=== PATIENT | female | born 1950 | race Two or more races ===

== ENCOUNTER 2021-12-10 20:41 | Inpatient (IN) | payer SELFPAY ==
[~2021-12-10] VITALS: Ht 160 cm; Wt 70.7 kg
[2021-12-10 22:39] LABS: Basophils # (auto) 0 10 ^3/uL (0-0.2); Basophils % (auto) 0.2 % (0.0-2.0); Eosinophils # (auto) 0 10 ^3/uL (0-0.8); Eosinophils % (auto) 0.4 % (0.0-7.0); Hematocrit 34.8 % (36.0-46.0); Hemoglobin 11.4 g/dL (12.2-16.2); Lymphocytes # (auto) 2.2 10 ^3/uL (0.4-5.4); Lymphocytes % (auto) 19.7 % (10.0-50.0); Mean Corpuscular Hemoglobin 29.8 pg (28.0-32.0); Mean Corpuscular Hgb Conc. 32.9 g/dL (32.0-36.0); Mean Corpuscular Volume 90.5 fL (80.0-100.0); Monocytes # (auto) 0.5 10 ^3/uL (0-1.3); Monocytes % (auto) 4.8 % (0.0-12.0); Neutrophils # (auto) 8.4 10 ^3/uL (1.6-8.6); Neutrophils % (auto) 74.9 % (37.0-80.0); Red Blood Cells 3.84 10^6/uL (4.0-5.20); Red Cell Distribution Width 12.9 % (11.8-14.3); White Blood Cell 11.2 10^3/uL (4.4-10.8)
[2021-12-10 23:03] LABS: Albumin 3.6 g/dL (3.4-5.0); Calcium 8.6 mg/dL (8.5-10.1); Potassium 4.1 mmol/L (3.5-5.1)
[2021-12-10 23:09] LABS: BUN/Creatinine Ratio 28.1; Bilirubin, Total 0.3 mg/dL (0.2-1.0); Magnesium 2.2 mg/dL (1.6-2.6); Total Protein 7.4 g/dL (6.4-8.2)
[2021-12-11] MEDS ORDERED: SODIUM CHLORIDE 0.9% 1,000 ML IV ONE
[2021-12-11 01:49] LABS: Urine Bacteria FEW /hpf (None Seen); Urine Blood Negative /uL (Negative); Urine Hyaline Cast MANY /lpf (0 - 2); Urine Mucus FEW (None Seen); Urine Specific Gravity 1.024 (1.001-1.035); Urine WBC 12 /hpf (0 - 5)
[2021-12-11 01:58] LABS: Alcohol, Urine < 3.0 mg/dL (0-10); Amphetamine Screen, Urine NEGATIVE (NEGATIVE); Barbiturate Scree,Urine NEGATIVE (NEGATIVE); Benzodiazephine Screen, Urine NEGATIVE (NEGATIVE); Cannabinoid Screen, Urine NEGATIVE (NEGATIVE); Cocaine Screen, Urine NEGATIVE (NEGATIVE); Opiate Scree,Urine NEGATIVE (NEGATIVE); Phencyclidine Screen, Urine NEGATIVE (NEGATIVE)
[2021-12-11] MEDS ORDERED: DEXTROSE (50%) 50ML SYRG IV PRN (06:15)
[2021-12-11] MEDS ORDERED: MORPHINE SULFATE INJ 2 MG/ml SYRG IV PRN (06:15)
[2021-12-11] MEDS ORDERED: DOCUSATE SOD 100 MG CAP PO PRN (06:15)
[2021-12-11] MEDS ORDERED: SODIUM CHLORIDE 0.9% 1,000 ML IV SCH (06:15)
[2021-12-11] MEDS ORDERED: HYDROcodone-ACET 5/325MG TAB PO PRN (06:15)
[2021-12-11] MEDS ORDERED: ONDANSETRON HCL 4 MG/2 ML VIAL IV PRN (06:15)
[2021-12-11] MEDS ORDERED: ACETAMINOPHEN 325 MG TAB PO PRN (06:15)
[2021-12-11] MEDS: cefTRIAXone 1GM/50ML D5W 50 ML IV SCH ×2 (06:26→11:13)
[2021-12-11 06:35] LABS: Potassium 4.5 mmol/L (3.5-5.1)
[2021-12-11] MEDS: InsuLIN REG 1unit/0.01ml Soln (100units/ml) SC SCH ×2 (06:35→11:30)
[2021-12-11] MEDS: ACCU-CHEK COMFORT CURVE STRIP VI SCH ×2 (06:35→11:30)
[2021-12-11 06:42] LABS: BUN/Creatinine Ratio 30.4; Calcium 8.4 mg/dL (8.5-10.1)
[2021-12-11 07:06] LABS: Basophils # (auto) 0 10 ^3/uL (0-0.2); Basophils % (auto) 0.3 % (0.0-2.0); Eosinophils # (auto) 0.1 10 ^3/uL (0-0.8); Eosinophils % (auto) 0.9 % (0.0-7.0); Hematocrit 32.2 % (36.0-46.0); Hemoglobin 10.8 g/dL (12.2-16.2); Lymphocytes # (auto) 1.1 10 ^3/uL (0.4-5.4); Lymphocytes % (auto) 19.3 % (10.0-50.0); Mean Corpuscular Hemoglobin 29.7 pg (28.0-32.0); Mean Corpuscular Hgb Conc. 33.5 g/dL (32.0-36.0); Mean Corpuscular Volume 88.8 fL (80.0-100.0); Monocytes # (auto) 0.4 10 ^3/uL (0-1.3); Monocytes % (auto) 7.4 % (0.0-12.0); Neutrophils % (auto) 72.1 % (37.0-80.0); Red Blood Cells 3.62 10^6/uL (4.0-5.20); Red Cell Distribution Width 13.2 % (11.8-14.3); White Blood Cell 5.6 10^3/uL (4.4-10.8)
[2021-12-11] MEDS: SODIUM CHLORIDE 0.9% 1,000 ML IV SCH (12:53)
[2021-12-11 15:30] VITALS: BP 122/62
[2021-12-11 16:41] VITALS: BP 107/55
[2021-12-11 22:00] VITALS: BP 109/49
[2021-12-11] MEDS ORDERED: InsuLIN REG 1unit/0.01ml Soln (100units/ml) SC SCH (22:00)
[2021-12-12] MEDS: SODIUM CHLORIDE 0.9% 1,000 ML IV SCH ×4 (01:42→20:45)
[2021-12-12 05:00] VITALS: BP 102/59
[2021-12-12 09:00] VITALS: BP 104/55
[2021-12-12] MEDS: cefTRIAXone 1GM/50ML D5W 50 ML IV SCH (10:15)
[2021-12-12 13:00] VITALS: BP 118/69
[2021-12-12 16:27] VITALS: BP 117/64
[2021-12-12 22:00] VITALS: BP 117/67
[2021-12-13] MEDS: SODIUM CHLORIDE 0.9% 1,000 ML IV SCH ×2 (03:34→13:00)
[2021-12-13 05:00] VITALS: BP 115/63
[2021-12-13 08:52] LABS: Urine Bacteria NONE SEEN /hpf (None Seen); Urine Blood Negative /uL (Negative); Urine Specific Gravity 1.007 (1.001-1.035); Urine WBC <1 /hpf (0 - 5)
[2021-12-13 09:24] VITALS: BP 121/61
[2021-12-13] MEDS: cefTRIAXone 1GM/50ML D5W 50 ML IV SCH (09:25)
[2021-12-13 13:00] VITALS: BP 130/70
[2021-12-13 13:57] VITALS: BP 130/70
== END 2021-12-13 14:45 | disposition home or self-care (01) | DRG 872 ==
LOC: EDBD 20:41 → ER 20:41 → OVERFLOW 12-11 06:09 → WEST WING 12-11 15:33
PROVIDERS: ADMIT Hospitalist; ATTEND Family Medicine
DX: A41.9 Sepsis, unspecified organism (principal); N39.0 Urinary tract infection, site not specified; E86.0 Dehydration; Z20.822 Contact with and (suspected) exposure to COVID-19; E03.9 Hypothyroidism, unspecified
CPT/HCPCS: 36415; 70450; 71045; 80048; 80053; 80307; 81001; 82962; 83735; 84443; 84484; 85025; 87040; 87086; 93005; 93306; 93886; 96361; 96365; G0378; J0696